=== PATIENT | female | born 1990 | race Caucasian/White ===

== ENCOUNTER 2018-05-08 11:48 | Emergency (ER) | payer MEDICAID ==
[~2018-05-08] VITALS: Ht 160 cm; Wt 70.0 kg
[2018-05-08] MEDS ORDERED: LIDOCAINE HCL 4% CREAM 76GM TUBE TP ONE (14:00)
[2018-05-08] MEDS ORDERED: LIDOCAINE HCL/PF 1% 10 MG/ML 5ML VIAL IJ SCH (14:30)
[2018-05-08 14:40] VITALS: BP 130/90
== END 2018-05-08 15:22 | disposition home or self-care (01) ==
LOC: ER 11:48
DX: S90.121A Contusion of right lesser toe(s) without damage to nail, initial encounter (principal); W22.8XXA Striking against or struck by other objects, initial encounter; Y93.89 Activity, other specified; Y92.010 Kitchen of single-family (private) house as the place of occurrence of the external cause
CPT/HCPCS: 10060; 73660; 81025; 99284; Z7610; J3490

== ENCOUNTER 2020-02-08 16:40 | Emergency (ER) | payer MEDICAID ==
[~2020-02-08] VITALS: Ht 157.5 cm; Wt 70.0 kg
[2020-02-08 18:51] LABS: CLARITY URINE CLEAR (CLEAR); COLOR URINE YELLOW (YELLOW); KETONES URINE NEGATIVE (NEGATIVE); LEUKOCYTE ESTERASE URINE TRACE (NEGATIVE); NITRITE URINE NEGATIVE (NEGATIVE); OCCULT BLOOD URINE NEGATIVE (NEGATIVE); PH URINE 7.5 (4.5-8.0); PROTEIN URINE NEGATIVE (NEGATIVE); SPECIFIC GRAVITY URINE 1.006 (1.005-1.030); UROBILINOGEN URINE 0.2 E.U./dL (0.2-1.0)
[2020-02-08 20:34] VITALS: BP 120/66
== END 2020-02-08 20:36 | disposition home or self-care (01) ==
LOC: ER 16:40
DX: R51 Headache (principal)
CPT/HCPCS: 81003; 81025; 82962; 99283